=== PATIENT | female | born 1950 | race Caucasian/White ===

== ENCOUNTER 2016-11-08 07:37 | Outpatient (CLI) | payer OTHER ==
--- NOTE | 2016-11-08 14:55 | DEXA Report ---
DEXA SCAN: 11/08/2016 CLINICAL INDICATION: Postmenopausal. TECHNIQUE: Dual energy x-ray absorptiometry (DXA) was performed on a [place] system. Regions measured are the AP spine, femoral neck, and, if needed, forearm. COMPARISON: None. In accordance with the International Society for Clinical Densitometry (ISCD) guidelines, data from previous exams may be reanalyzed using current recommendations and techniques. This is done to allow a more accurate basis for comparison with the current study. FINDINGS: The data for the lumbar spine is as follows: REGION BMD (g/cm/cm) T-SCORE Z-SCORE L1 1.284 1.3 2.4 L2 1.221 0.2 1.3 L3 1.422 1.8 3.0 L4 1.417 1.8 2.9 TOTAL 1.347 1.4 2.5 NOTE: All evaluable vertebrae are used for classification. The data for the hip is as follows: REGION BMD (g/cm/cm) T-SCORE Z-SCORE Neck 0.908 -0.9 0.3 TOTAL 1.054 0.4 1.4 NOTE: The femoral neck or total proximal femur, whichever is lowest, is used for classification. IMPRESSION: THE WHO CLASSIFICATION BASED ON THE INTERNATIONAL REFERENCE STANDARD IS NORMAL. THE FRACTURE RISK IS NOT INCREASED. RECOMMENDATION: Patients with diagnosis of osteoporosis or osteopenia should have regular bone mineral density assessment. For those eligible for Medicare, routine testing is allowed once every 2 years. Testing frequency can be increased for patients who have rapidly progressing disease or for those who are receiving medical therapy to restore bone mass. COMMENT: World Health Organization (WHO) definitions for osteoporosis and osteopenia: NORMAL BMD: T-score at -1.0 or higher, fracture risk is low. OSTEOPENIA BMD: T-score between -1.0 and -2.5, fracture risk is increased. OSTEOPOROSIS BMD: T-score at -2.5 or lower, fracture risk high. National Osteoporosis Foundation recommends: 1. Obtain adequate dietary calcium (at least 1200 mg per day) and vitamin D (400 -800 international units per day). 2. Participate, as appropriate, in regular weightbearing and muscle- strengthening exercise. 3. Avoid tobacco use and reduce alcohol and caffeine intake. 4. For more detailed information see the website at www.NOF.org. MTDD
== END 2016-11-08 07:38 | disposition home or self-care (01) ==
LOC: DI 07:37
PROVIDERS: ATTEND Naturopath
DX: Z13.820 Encounter for screening for osteoporosis (principal); Z78.0 Asymptomatic menopausal state
CPT/HCPCS: 77080

== ENCOUNTER 2016-12-14 11:18 | Outpatient (CLI) | payer OTHER ==
--- NOTE | 2016-12-14 16:21 | Ultrasound Report ---
EXAM: RENAL ULTRASOUND EXAM DATE: 12/14/2016 12:08 PM. CLINICAL HISTORY: MICROSCOPIC HEMATURIA - R/O RENAL CALCULI. COMPARISON: CT scan from 11/20/2009. TECHNIQUE: Real-time scanning was performed with static images obtained. FINDINGS: Right Kidney: 12 x 4.2 x 5.0 cm. There is a parapelvic cyst measuring up to 1.9 cm. Normal echotextur e with no stones, contour-deforming masses, or hydronephrosis. Left Kidney: 11.2 x 4.6 x 5.4 cm. Normal echotexture with no stones, contour-deforming masses, or hyd ronephrosis. Bladder: Bilateral jets seen. The prevoid bladder volume was 168 cc. The postvoid bladder volume was 26 cc. IMPRESSION: Right renal parapelvic cyst up to 1.9 cm, otherwise unremarkable exam. [facility] Referring Provider Line: [phone] SITE ID: [id number]
== END 2016-12-14 11:19 | disposition home or self-care (01) ==
LOC: DI 11:18
PROVIDERS: ATTEND Naturopath
DX: R31.29 Other microscopic hematuria (principal); N28.1 Cyst of kidney, acquired
CPT/HCPCS: 76770

== ENCOUNTER 2017-03-26 16:55 | Outpatient (CLI) | payer OTHER ==
--- NOTE | 2017-03-27 14:34 | Ultrasound Report ---
EXAM: RIGHT LOWER EXTREMITY ULTRASOUND - LIMITED EXAM DATE: 03/26/2017 06:09 PM. CLINICAL HISTORY: PAIN IN RIGHT KNEE. COMPARISON: None. TECHNIQUE: Real-time scanning was performed with static images obtained. Region of interest: Right po pliteal fossa. FINDINGS: There is a fluid collection at the right popliteal fossa measuring 5.8 x 3.4 x 1.1 cm, whic h may reflect Bakers cyst. IMPRESSION: Right popliteal fossa fluid collection, which may reflect Bakers cyst [facility] Referring Provider Line: [phone] SITE ID: [id number]
== END 2017-03-26 16:56 | disposition home or self-care (01) ==
LOC: DI 16:55
PROVIDERS: ATTEND Naturopath
DX: M25.561 Pain in right knee (principal); M25.461 Effusion, right knee
CPT/HCPCS: 76882

== ENCOUNTER 2017-04-10 15:47 | Outpatient (CLI) | payer OTHER ==
--- NOTE | 2017-04-11 11:13 | XRAY Report ---
RIGHT KNEE: 04/10/2017 COMPARISON: None. INDICATION: Right knee pain. TECHNIQUE: Three views of the right knee. FINDINGS: There are moderate tricompartmental degenerative changes. Normal alignment. No effusion. No evidence of acute fracture. IMPRESSION: MODERATE TRICOMPARTMENTAL OSTEOARTHRITIS. JOB #: [id number] EXT JOB #: [id number] [facility]
== END 2017-04-10 15:48 | disposition home or self-care (01) ==
LOC: DI.S 15:47
PROVIDERS: ATTEND Naturopath
DX: M17.11 Unilateral primary osteoarthritis, right knee (principal)

== ENCOUNTER 2019-08-19 16:35 | Outpatient (CLI) | payer OTHER | END 2019-08-19 16:36 | disposition home or self-care (01) | LOC: COV 16:35 | PROVIDERS: ATTEND Family Medicine | DX: R50.9 Fever, unspecified (principal); R61 Generalized hyperhidrosis; R05 Cough; R06.02 Shortness of breath; R06.2 Wheezing; M79.10 Myalgia, unspecified site; R53.83 Other fatigue; R19.7 Diarrhea, unspecified | CPT/HCPCS: 81599 ==

== ENCOUNTER 2019-08-23 18:51 | Emergency (ER) | payer OTHER ==
[2019-08-23 19:26] LABS: BASOPHILS % (AUTO) 0.4 %; EOSINOPHILS % (AUTO) 0.4 %; HGB - HEMOGLOBIN 14.8 g/dL (12.0-16.0); LYMPHOCYTES % (AUTO) 22.5 %; MEAN CORPUSCULAR HEMOGLOBIN 32.5 pg (27.0-31.0); MEAN CORPUSCULAR HGB CONC 34.4 g/dL (32.0-36.0); MEAN CORPUSCULAR VOLUME 94.3 fL (81.0-99.0); MEAN PLATELET VOLUME 10.7 fL (7.9-10.8); MONOCYTES # (AUTO) 0.9 10^3/uL (0.0-1.0); MONOCYTES % (AUTO) 9.6 %; NEUTROPHILS # (AUTO) 6.1 10^3/uL (1.5-6.6); NEUTROPHILS % (AUTO) 66.9 %; PLT - PLATELET COUNT 287 10^3/uL (130-450); RED BLOOD COUNT 4.56 10^6/uL (4.20-5.40); WHITE BLOOD COUNT 9.1 x10^3/uL (4.8-10.8)
--- NOTE | 2019-08-23 19:26 | ED Physician Documentation ---
PD HPI CHEST PAIN - Stated complaint Stated Complaint: PX BREATHING, HEART RACING - Chief complaint Chief Complaint: Cardiac - History obtained from History obtained from: Patient (68-year-old woman with longstanding hypothyroidism and also takes a natural pathic adrenal supplements. She is been sick for 5 weeks with migratory chest tightness associated with racing heart and shortness of breath. Minimal cough. She denies pedal edema or calf pain. The adrenal supplements is not new. Pain lasts for minutes at a time. It is not exertional.) Review of Systems Constitutional: reports: Fatigue. denies: Fever, Chills Nose: denies: Rhinorrhea / runny nose, Congestion Cardiac: reports: Chest pain / pressure, Palpitations. denies: Pedal edema, C leticia pain Respiratory: reports: Dyspnea. denies: Cough PD PAST MEDICAL HISTORY - Allergies Allergies/Adverse Reactions: Allergies Allergy/AdvReac Type Severity Reaction Status Date / Time Penicillins Allergy Unknown Verified 08/23/19 18:58 PD ED PE NORMAL - Vitals Vital signs reviewed: Yes - General General: Alert and oriented X 3, No acute distress - HEENT HEENT: PERRL, EOMI - Neck Neck: Supple, no meningeal sign, No bony TTP - Cardiac Cardiac: RRR, No murmur - Respiratory Respiratory: No respiratory distress, Clear bilaterally - Abdomen Abdomen: Non tender - Derm Derm: Normal color, Warm and dry - Extremities Extremities: No edema, No calf tenderness / cord - Neuro Neuro: Alert and oriented X 3, Normal speech Results - Vitals Vitals: Vital Signs - 24 hr 08/23/19 18:58 Temperature 36.5 C Heart Rate 104 H Respiratory 16 Rate Blood Pressure 161/75 H O2 Saturation 99 Oxygen O2 Source Room air - EKG (time done) 1904 Rate: Rate (enter#) (105) Rhythm: Sinus tachycardia [place]: Normal Intervals: Normal IN QRS: Normal Ischemia: Normal ST segments Computer interpretation: Agree with computer - Labs Labs: Laboratory Tests 08/23/19 08/23/19 08/23/19 19:20 19:20 19:20 WBC 9.1 RBC 4.56 Hgb 14.8 Hct 43.0 MCV 94.3 MCH 32.5 H MCHC 34.4 RDW 13.0 Plt Count 287 MPV 10.7 Neut # (Auto) 6.1 Lymph # (Auto) 2.0 [place] # (Auto) 0.9 Eos # (Auto) 0.0 Baso # (Auto) 0.0 Absolute Nucleated RBC 0.00 Nucleated RBC % 0.0 D-Dimer Sodium 133 L Potassium 3.3 L Chloride 99 L Carbon Dioxide 23 Anion Gap 11.0 BUN 12 Creatinine 0.7 Estimated GFR (MDRD) 83 L Glucose 115 H Calcium 9.3 Total Bilirubin 0.8 AST 23 ALT 21 Alkaline Phosphatase 93 Troponin I High Sens 3.8 Total Protein 7.2 Albumin 4.5 Globulin 2.7 Albumin/Globulin Ratio 1.7 Lipase 39 08/23/19 19:20 WBC RBC Hgb Hct MCV MCH MCHC RDW Plt Count MPV Neut # (Auto) Lymph # (Auto) [place] # (Auto) Eos # (Auto) Baso # (Auto) Absolute Nucleated RBC Nucleated RBC % D-Dimer < 200.0 L Sodium Potassium Chloride Carbon Dioxide Anion Gap BUN Creatinine Estimated GFR (MDRD) Glucose Calcium Total Bilirubin AST ALT Alkaline Phosphatase Troponin I High Sens Total Protein Albumin Globulin Albumin/Globulin Ratio Lipase - Rads (name of study) Single view chest x-ray Radiology: EMP read contemporaneously (Normal) PD MEDICAL DECISION MAKING - ED course ED course: 68-year-old woman with 5 weeks worth of migratory atypical chest pain and shortness of breath. She was symptomatic here with palpitations but remained in normal sinus rhythm on the monitor. Sometimes tachycardic but not very much so. Work-up was negative except for modest hypokalemia. Chest x-ray negative. Advised she need to follow-up for stress testing and Holter monitor. Departure - Departure Disposition: 01 Home, Self Care Clinical Impression: Atypical chest pain, Palpitations Condition: Good Record reviewed to determine appropriate education?: Yes Instructions: ED Chest Pain Atypical Unkn Cause Comments: You were seen today for palpitations and migratory atypical chest pains of 5 weeks duration. Your heart testing was negative, your EKG showed normal sinus rhythm without findings of a heart attack or anything along those lines. You had no arrhythmias on the monitor while in the [place]. Lab work was notable for a normal d-dimer, ruling out blood clot. Normal high-sensitivity troponin suggesting no ischemic heart disease. Your potassium was slightly low and we gave you a potassium pill here. Follow-up with your doctor tomorrow, consider referral for stress testing and Holter monitor.
[2019-08-23 19:40] LABS: ALBUMIN 4.5 g/dL (3.2-5.5); ALBUMIN/GLOBULIN RATIO 1.7 (1.0-2.2); BILIRUBIN,TOTAL 0.8 mg/dL (0.2-1.0); CALCIUM 9.3 mg/dL (8.5-10.3); CREATININE 0.7 mg/dL (0.4-1.0); TOTAL PROTEIN 7.2 g/dL (6.7-8.2)
--- NOTE | 2019-08-23 19:54 | XRAY Report ---
Reason: Chest pain Procedure Date: 08/23/2019 Accession Number: [id number] / [id number] Procedure: XR - Chest 1 View X-Ray CPT Code: 32685 Final Report FULL RESULT: EXAM: CHEST RADIOGRAPHY EXAM DATE: 08/23/2019 07:37 PM. CLINICAL HISTORY: Chest pain. COMPARISON: None. TECHNIQUE: 1 view. FINDINGS: Lungs/Pleura: No focal opacities evident. No pleural effusion. No pneumothorax. Mediastinum: Within exam limitations, the cardiomediastinal contour is normal. Other: None. IMPRESSION: Negative chest. [facility]
[2019-08-23] MEDS ORDERED: POTASSIUM CHLORIDE 20 MEQ TABLET PO STA (19:58)
[2019-08-23 20:25] VITALS: BP 160/96
== END 2019-08-23 20:24 | disposition home or self-care (01) ==
LOC: ED 18:51
DX: R07.89 Other chest pain (principal); R00.2 Palpitations; R06.02 Shortness of breath
CPT/HCPCS: 36415; 71045; 80053; 83690; 84484; 85025; 85379; 93005; 99284; A9270

== ENCOUNTER 2020-12-22 07:42 | Emergency (ER) | payer MEDICARE, OTHER ==
--- NOTE | 2020-12-22 07:52 | ED Physician Documentation ---
PD HPI CHEST PAIN - Stated complaint Stated Complaint: CHEST PX - History obtained from History obtained from: Patient - History of Present Illness Timing - onset: Enter time (399), Today Timing - onset during: Rest Timing - duration: Seconds Timing - details: Abrupt onset, Now resolved Pain level max: 3 Pain level now: 0 Quality: Pain, Other (twinge) Location: Right chest Radiation: No: Jaw, Neck, Back, Abdominal, Left upper extremity, Right upper extremity Improved by: Rest Worsened by: No: Exertion, Inspiration Associated symptoms: No: Shortness of air, Diaphoresis, Nausea, Vomiting, Feeling faint / dizzy, General Weakness, Palpitations, Cough Similar symptoms before: Diagnosis (atypical chest pain) Recently seen: Not recently seen - Additional information Additional information: 70-year-old female who reports having Covid 18 months ago has developed right- sided chest pain at about 4:00 in the morning. She rates this as a 3 out of 10. She says that lasted seconds and repeated episodes of a twinge in the right chest without radiation or modifying factors. Review of Systems Constitutional: denies: Fever Eyes: denies: Decreased vision Ears: denies: Ear pain Nose: denies: Congestion Throat: denies: Sore throat Cardiac: reports: Chest pain / pressure. denies: Palpitations Respiratory: denies: Dyspnea, Cough GI: denies: Vomiting PD PAST MEDICAL HISTORY - Allergies Allergies/Adverse Reactions: Allergies Allergy/AdvReac Type Severity Reaction Status Date / Time Penicillins Allergy Unknown Verified 08/23/19 18:58 Sulfa (Sulfonamide Allergy Rash Verified 12/22/20 07:54 Antibiotics) PD ED PE NORMAL - Vitals Vital signs reviewed: Yes (tachy and hypertensive ) - General General: Alert and oriented X 3, No acute distress, Well developed/nourished - HEENT HEENT: Atraumatic, PERRL, EOMI - Neck Neck: Supple, no meningeal sign, No bony TTP - Cardiac Cardiac: RRR, No murmur - Respiratory Respiratory: No respiratory distress, Clear bilaterally - Abdomen Abdomen: Soft, Non tender - Back Back: No CVA TTP, No spinal TTP - Derm Derm: Normal color, Warm and dry, No rash - Extremities Extremities: No deformity, No edema - Neuro Neuro: Alert and oriented X 3, ingot weigher 2-12 intact, No motor deficit, No sensory deficit, Normal speech Eye Opening: Spontaneous Motor: Obeys Commands Verbal: Oriented GCS Score: 15 - Psych Psych: Normal mood, Normal affect Results - Vitals Vitals: Vital Signs - 24 hr 12/22/20 12/22/20 12/22/20 07:51 08:14 09:01 Temperature 35.8 C L 37.0 C Heart Rate 103 H 81 71 Respiratory 14 14 12 Rate Blood Pressure 175/90 H 176/92 H 127/103 H O2 Saturation 100 99 96 Oxygen O2 Source Room air - EKG (time done) 0749 Rate: Rate (enter#) (90) Rhythm: NSR Compare to prior EKG: Changed from prior EKG (SPT 08-23-19 rate has decreased) Computer interpretation: Agree with computer - Labs Labs: Laboratory Tests 12/22/20 12/22/20 12/22/20 08:10 08:10 08:10 WBC 7.3 RBC 4.56 Hgb 14.7 Hct 44.3 MCV 97.1 MCH 32.2 H MCHC 33.2 RDW 13.3 Plt Count 243 MPV 10.8 Neut # (Auto) 4.7 Lymph # (Auto) 1.7 [place] # (Auto) 0.7 Eos # (Auto) 0.1 Baso # (Auto) 0.1 Absolute Nucleated RBC 0.00 Nucleated RBC % 0.0 D-Dimer < 200.0 L Sodium 138 Potassium 3.7 Chloride 102 Carbon Dioxide 26 Anion Gap 10.0 BUN 13 Creatinine 0.7 Estimated GFR (MDRD) 82 L Glucose 109 H Calcium 9.4 Total Bilirubin 0.7 AST 25 ALT 23 Alkaline Phosphatase 86 Troponin I High Sens Total Protein 7.3 Albumin 4.3 Globulin 3.0 Albumin/Globulin Ratio 1.4 Lipase 42 12/22/20 08:10 WBC RBC Hgb Hct MCV MCH MCHC RDW Plt Count MPV Neut # (Auto) Lymph # (Auto) [place] # (Auto) Eos # (Auto) Baso # (Auto) Absolute Nucleated RBC Nucleated RBC % D-Dimer Sodium Potassium Chloride Carbon Dioxide Anion Gap BUN Creatinine Estimated GFR (MDRD) Glucose Calcium Total Bilirubin AST ALT Alkaline Phosphatase Troponin I High Sens 2.8 Total Protein Albumin Globulin Albumin/Globulin Ratio Lipase - Rads (name of study) chest Radiology: Prelim report reviewed (Impression: 1. No acute cardiopulmonary disease. 2. Findings suggestive of COPD.), EMP read indepedently, See rad report PD MEDICAL DECISION MAKING - ED course Complexity details: reviewed old records, reviewed results, re-evaluated patient, considered differential, d/w patient ED course: 70-year-old female with episodic low-grade short episodes of right-sided chest pain has unremarkable diagnostics today including chest x-ray, electrocardiogram, blood counts, electrolytes, kidney and liver function, D- dimer, troponin and physical examination. She has a single episode of 1 out of 10 chest pain while she is here that it was brief in nature. We have diagnosed her with chest pain atypical uncertain etiology. I did not find any abnormality suggestive of a life-threatening condition on diagnostic work-up. Departure - Departure Disposition: 01 Home, Self Care Clinical Impression: Atypical chest pain Condition: Stable Instructions: ED Chest Pain Atypical Unkn Cause Follow-Up: Angely Meneses [place] [Primary Care Provider] - Discharge Date/Time: 12/22/20 09:07
[2020-12-22 08:23] LABS: BASOPHILS # (AUTO) 0.1 10^3/uL (0.0-0.1); BASOPHILS % (AUTO) 0.7 %; EOSINOPHILS # (AUTO) 0.1 10^3/uL (0.0-0.7); EOSINOPHILS % (AUTO) 0.8 %; HCT - HEMATOCRIT 44.3 % (37.0-47.0); HGB - HEMOGLOBIN 14.7 g/dL (12.0-16.0); LYMPHOCYTES # (AUTO) 1.7 10^3/uL (1.5-3.5); MEAN CORPUSCULAR HEMOGLOBIN 32.2 pg (27.0-31.0); MEAN CORPUSCULAR HGB CONC 33.2 g/dL (32.0-36.0); MEAN CORPUSCULAR VOLUME 97.1 fL (81.0-99.0); MEAN PLATELET VOLUME 10.8 fL (7.9-10.8); MONOCYTES # (AUTO) 0.7 10^3/uL (0.0-1.0); MONOCYTES % (AUTO) 9.7 %; NEUTROPHILS # (AUTO) 4.7 10^3/uL (1.5-6.6); NEUTROPHILS % (AUTO) 64.4 %; PLT - PLATELET COUNT 243 10^3/uL (130-450); RED BLOOD COUNT 4.56 10^6/uL (4.20-5.40); RED CELL DISTRIBUTION WIDTH 13.3 % (12.0-15.0); WHITE BLOOD COUNT 7.3 x10^3/uL (4.8-10.8)
[2020-12-22 08:43] LABS: ALBUMIN 4.3 g/dL (3.2-5.5); ALBUMIN/GLOBULIN RATIO 1.4 (1.0-2.2); BILIRUBIN,TOTAL 0.7 mg/dL (0.2-1.0); CALCIUM 9.4 mg/dL (8.5-10.3); CREATININE 0.7 mg/dL (0.4-1.0); POTASSIUM 3.7 mmol/L (3.5-5.0); TOTAL PROTEIN 7.3 g/dL (6.7-8.2)
--- NOTE | 2020-12-22 08:46 | XRAY Report ---
PROCEDURE: Chest 1 View X-Ray INDICATIONS: chest pain TECHNIQUE: One view of the chest was acquired. COMPARISON: 08/23/2019 FINDINGS: Surgical changes and devices: None. Lungs and pleura: No pleural effusions or pneumothorax. Lungs are clear. There is hyperinflation of the lungs with mild flattening of the hemidiaphragms suggestive of COPD. Mediastinum: Mediastinal contours appear normal. Heart size is normal. Bones and chest wall: No suspicious bony lesions. Overlying soft tissues appear unremarkable. IMPRESSION: 1. No acute cardiopulmonary disease. 2. Findings suggestive of COPD. Reviewed by: Charanjit Hernandez MD on 12/22/2020 8:45 AM PDT Approved by: Charanjit Hernandez MD on 12/22/2020 8:45 AM PDT Station ID: [id number]
[2020-12-22 09:03] VITALS: BP 127/103
== END 2020-12-22 09:07 | disposition home or self-care (01) ==
LOC: ED 07:42
DX: R07.89 Other chest pain (principal); Z86.16 Personal history of COVID-19
CPT/HCPCS: 36415; 80053; 83690; 84484; 85025; 85379; 93005; 99284

== ENCOUNTER 2022-10-25 07:26 | Outpatient (CLI) | payer MEDICARE, OTHER ==
--- NOTE | 2022-10-25 14:12 | XRAY Report ---
PROCEDURE: Hip w/Pelvis 2-3V RT INDICATIONS: RIGHT HIP PAIN TECHNIQUE: AP pelvis with lateral view(s) of the right hip(s). COMPARISON: None. FINDINGS: Bones: No fractures or dislocations. No suspicious bony lesions. Moderate bilateral degenerative hip joint space narrowing. Degenerative changes are present within the lower lumbar spine. No erosion s Soft tissues: No suspicious soft tissue calcifications or masses. IMPRESSION: Moderate bilateral hip arthritis. Reviewed by: Crista Cantu MD on 10/25/2022 2:11 PM PDT Approved by: Crista Cantu MD on 10/25/2022 2:11 PM PDT Station ID: [id number]
== END 2022-10-25 07:27 | disposition home or self-care (01) ==
LOC: DI.S 07:26
PROVIDERS: ATTEND Naturopath
DX: M16.0 Bilateral primary osteoarthritis of hip (principal)

== ENCOUNTER 2023-06-05 18:29 | Outpatient (CLI) | payer MEDICARE, OTHER ==
--- NOTE | 2023-06-06 01:10 | Ultrasound Report ---
PROCEDURE: Renal (Retroperitoneal) INDICATIONS: DYSURIA, CYSITIS, FREQUENCY IN MICTURITION TECHNIQUE: Real-time scanning was performed of the retroperitoneal organs, with image documentation. COMPARISON: None. FINDINGS: Kidneys: Kidneys are normal in size. Right kidney measures 12.8 cm long; left kidney measures 11.1 cm long. Right renal cortical thickness is 1.6 cm; left renal cortical thickness is 1.2 cm. No guillermina d masses, hydronephrosis, or nephrolithiasis. Benign, anechoic right renal cyst measuring 1.7 cm. Bladder: Pre-void bladder volume is 543 mL. Post-void residual is 13 mL. Pre-void images demonstra te no intraluminal masses or stones. On pre-void images, both ureteral jets are noted with color Dop pler interrogation. (Of note, ureteral jets may not be detectable in up to 25% of cases due to insuf ficient differences in specific gravity between ureteral and bladder urine). Miscellaneous: No free abdominal fluid. IMPRESSION: Normal renal ultrasound. Reviewed by: Stevie Orozco MD on 06/06/2023 1:09 AM [facility] Approved by: Stevie Orozco MD on 06/06/2023 1:09 AM PST Station ID: [id number]
--- NOTE | 2023-06-06 01:12 | Ultrasound Report ---
PROCEDURE: Pelvic w/Transvaginal INDICATIONS: PELVIC AND PERINEAL PAIN TECHNIQUE: Real-time scanning was performed of the pelvic organs, with image documentation. Additional endovagi nal scanning was necessary due to incomplete visualization of the adnexal and endometrial structures by transabdominal scanning. COMPARISON: None. FINDINGS: Uterus: Uterus is anteverted and normal in size at 4.6 x 2.8 x 3.7 cm. The myometrium is heterogene ous. The endometrium measures 6 mm in combined thickness. Ovaries: Ovaries are atrophic, without mass. These are now well-seen due to size. Other: No pathologic free abdominal or pelvic fluid. IMPRESSION: Endometrium measures 6 mm in thickness, within normal limits in the absence of postmenopausal bleedin g. If postmenopausal bleeding is present, consider tissue sampling. No findings to explain the patient's pelvic pain. Reviewed by: Stevie Orozco MD on 06/06/2023 1:10 AM PST Approved by: Stevie Orozco MD on 06/06/2023 1:10 AM PST Station ID: [id number]
== END 2023-06-05 18:30 | disposition home or self-care (01) ==
LOC: DI 18:29
PROVIDERS: ATTEND Naturopath
DX: R30.0 Dysuria (principal); R35.0 Frequency of micturition; N30.91 Cystitis, unspecified with hematuria